=== PATIENT | male | born 1960 | race Two or more races ===

== ENCOUNTER 2019-10-04 09:52 | Inpatient (IN) | payer OTHER ==
[~2019-10-04] VITALS: Ht 165.1 cm; Wt 68.0 kg
--- NOTE | 2019-10-04 10:10 | NUR ---
PT BIBRA FROM HOME C/O L SIDE CHEST PAIN AND BODY ACHES FOR 3 DAYS, PT IS AAOX4, NOT IN RESPIRATORY DISTRESS, HOOKED TO COMPETITIVE INTELLIGENCE MANAGER, KEPT RESTED AND COMFORTABLE, WILL CONTINUE TO MONITOR.
--- NOTE | 2019-10-04 10:30 | NUR ---
SEEN AND EXAMINED BY .
--- NOTE | 2019-10-04 10:40 | NUR ---
IV LINE ESTABLISHED BLOOD DRAWN AND SENT TO LAB.
--- NOTE | 2019-10-04 10:45 | NUR ---
COVID SWAB OBTAINED AND SENT TO LAB.
[2019-10-04 10:52] LABS: BASOPHILS # (AUTO) 0.1 /CMM (0.0-0.2); BASOPHILS % (AUTO) 2.8 % (0.0-2.0); EOSINOPHILS % (AUTO) 0.3 % (0.0-6.0); HEMATOCRIT 44 % (39-51); HEMOGLOBIN 15.4 g/dL (13.5-17.5); LYMPHOCYTES # (AUTO) 1.3 /CMM (0.8-4.8); MEAN CORPUSCULAR HGB CONC 35 g/dl (31.0-36.0); MEAN CORPUSCULAR VOLUME 90 fL (80-96); MONOCYTES # (AUTO) 0.4 /CMM (0.1-1.30); MONOCYTES % (AUTO) 9.2 % (2.0-12.0); NEUTROPHILS # (AUTO) 2.4 /CMM (1.8-8.9); NEUTROPHILS % (AUTO) 57.7 % (43.0-81.0); PLATELET COUNT (AUTO) 176 /CMM (150-450); RED BLOOD CELL COUNT(AUTO) 4.93 MIL/uL (4.5-6.0); WHITE BLOOD COUNT (AUTO) 4.2 K/uL (4.3-11.0)
--- NOTE | 2019-10-04 10:53 | NUR ---
URINAL GIVEN BUT UNABLE TO PROVIDE URINE SPECIMEN THIS TIME.
[2019-10-04 10:59] LABS: CALCIUM, SERUM 8.6 mg/dL (8.5-10.1); CARBON DIOXIDE 27 mmol/L (21-32); CHLORIDE 98 mmol/L (98-107); CREATININE 1.1 mg/dL (0.6-1.3); GLUCOSE 214 mg/dL (74-106); POTASSIUM 3.7 mmol/L (3.5-5.1); SODIUM SERUM 132 mmol/L (136-145); UREA NITROGEN, BLOOD 14 mg/dL (7-18)
--- NOTE | 2019-10-04 11:05 | NUR ---
RT AT BEDSIDE FOR ABG.
[2019-10-04 11:09] LABS: D-DIMER 0.52 mg/L(FEU (0.17-0.50)
--- NOTE | 2019-10-04 11:09 | NUR ---
REFRIGERATION HOUSEMAN AT BEDSIDE FOR XRAY.
[2019-10-04 11:16] LABS: ALANINE AMINOTRANSFERASE 27 U/L (12-78); ALBUMIN 3.1 g/dL (3.4-5.0); ALKALINE PHOSPHATASE 66 U/L (46-116); ASPARTATE AMINOTRANSFERASE 27 U/L (15-37); B-TYPE NATRIURETIC PEPTIDE 70 PG/ML (0-125); BILIRUBIN,TOTAL 0.4 mg/dL (0.2-1.0); TOTAL PROTEIN, SERUM 7.2 g/dL (6.4-8.2)
[2019-10-04 11:20] LABS: ABG BASE EXCESS -2.8 mmol/L; ABG OXYGEN SATURATION 94.6 % (92.0-98.5); ABG PCO2 24.6 mmHg (35.0-45.0); ABG PH 7.494 (7.350-7.450); ABG PO2 74.2 mmHg (75.0-100.0); AaDO2 46.1 mmHg; COHb 1.2 % (0.5-1.5); MetHb 0.4 % (0.0-1.5); O2Hb 93.1 % (94.0-97.0); SITE, ABG Left Radial
[2019-10-04 11:24] LABS: FERRITIN 859 ng/mL (8-388)
--- NOTE | 2019-10-04 11:41 | NUR ---
URINE SPECIMEN COLLECTED AND SENT TO LAB.
[2019-10-04 11:44] LABS: C-REACTIVE PROTEIN 15.9 mg/dL (0.0-0.9)
[2019-10-04 11:45] LABS: APPEARANCE,URINE Clear (CLEAR); BILIRUBIN,URINE Negative (NEGATIVE); BLOOD, URINE Negative Ery/uL (NEGATIVE); COLOR,URINE Yellow (YELLOW); KETONES,URINE 40 (NEGATIVE); LEUKOCYTE ESTERASE ,URINE Negative (NEGATIVE); NITRITE, URINE Negative (NEGATIVE); PROTEIN,URINE 100 mg/dl (NEGATIVE); UGLUCOSE >=1000 mg/dL (NEGATIVE); UROBILINOGEN,URINE 0.2 EU/dL (0.2)
--- NOTE | 2019-10-04 12:46 | NUR ---
RAMYA BABCOCK DNP AT BEDSIDE FOR EVAL.
[2019-10-04] MEDS ORDERED: ALBUTEROL SULFATE 8 GM HFA.AER.AD IH PRN (13:00)
[2019-10-04] MEDS ORDERED: CEFTRIAXONE 1 G in IV D5W 50 ML IV SCH (13:00)
[2019-10-04] MEDS ORDERED: AZITHROMYCIN 500 MG in IV D5W 250 ML IV ONE (13:00)
[2019-10-04] MEDS ORDERED: ONDANSETRON HCL/PF 4 MG/2 ML VIAL IVP PRN (13:00)
[2019-10-04] MEDS ORDERED: CEFTRIAXONE 1GM BAG (ER ONLY) 50 ML IV ONE (13:07)
[2019-10-04] MEDS ORDERED: CEFTRIAXONE 1 G in IV D5W 50 ML IV ONE (13:13)
--- NOTE | 2019-10-04 13:17 | NUR ---
REPORT GIVEN TO YAIMA COOK FOR YUSRA.
[2019-10-04] MEDS ORDERED: HYDROXYCHLOROQUINE 200 MG TABLET PO SCH (14:00)
--- NOTE | 2019-10-04 14:00 | NUR ---
STOCK PREPARATION OPERATOR NOTES RECEIVED PATIENT FROM ER. PATIENT IS A/OX4 AMBULATORY WITH CLEAR CONVERSATION. PATIENT ON ISOLATION FOR COVID RULE OUT. VITALS WITHIN NORMAL LIMITS AND NO FEVER NOTED AT THIS TIME. PATIENT HAS LEFT AC IV ACCESS (PATENT). BELONGINGS SIGNED AND PUT IN THE CHART. NO SKIN ISSUES NOTED AT THIS TIME. NO PICTURES WERE TAKEN. WILL CONTINUE TO MONITOR THE PATIENT.
[2019-10-04 16:00] VITALS: BP 141/92
[2019-10-04] MEDS ORDERED: MELO-107 PO (16:22)
[2019-10-04] MEDS: ACETAMINOPHEN 325 MG TABLET PO PRN (18:44)
--- NOTE | 2019-10-04 19:30 | NUR ---
TREE DEADENER NOTES PATIENT IS SITTING IN BED AND A/OX4. NO SOB OR DISCOMFORT NOTED AT THIS TIME. ALL NEED ATTENDED. REPORT GIVEN TO HOURLY MANAGER NURSE FOR YUSRA.
[2019-10-04 20:00] VITALS: BP 124/77
--- NOTE | 2019-10-04 20:00 | NUR ---
RN OPENING NOTE PT RECEIVED IN BED WATCHING TV. PT IS A/A/O X3. THERE IS NO S/S OF DISTRESS.PT HAS UNLABORED BREATHING. PT IS ON RA SATING 94%. PT HAS LAC IV 18 G S/L , PATENT AND DRESSING DRY AND INTACT. PT IS ON TELE MONITOR SR AND HR IN 70s. SAFETY MEASURES IN PLACE BED AT LOWEST POSITION, LOCKED, SIDE RAILS UP X2, CALL LIGHT IN REACH. WILL CONTINUE TO MONITOR.
[2019-10-05] VITALS: BP 138/89
[2019-10-05] MEDS: ACETAMINOPHEN 325 MG TABLET PO PRN ×3 (00:22→20:30)
[2019-10-05 04:00] VITALS: BP 139/86
[2019-10-05 06:23] LABS: BASOPHILS % (AUTO) 0.2 % (0.0-2.0); EOSINOPHILS % (AUTO) 0.1 % (0.0-6.0); HEMATOCRIT 42 % (39-51); HEMOGLOBIN 15.1 g/dL (13.5-17.5); LYMPHOCYTES # (AUTO) 1.6 /CMM (0.8-4.8); LYMPHOCYTES % (AUTO) 30.1 % (20.0-44.0); MEAN CORPUSCULAR HGB CONC 36 g/dl (31.0-36.0); MEAN CORPUSCULAR VOLUME 88 fL (80-96); MONOCYTES # (AUTO) 0.6 /CMM (0.1-1.30); NEUTROPHILS # (AUTO) 3.1 /CMM (1.8-8.9); NEUTROPHILS % (AUTO) 58.6 % (43.0-81.0); PLATELET COUNT (AUTO) 205 /CMM (150-450); RED BLOOD CELL COUNT(AUTO) 4.79 MIL/uL (4.5-6.0); WHITE BLOOD COUNT (AUTO) 5.2 K/uL (4.3-11.0)
[2019-10-05 06:28] LABS: BILIRUBIN,TOTAL 0.5 mg/dL (0.2-1.0); CALCIUM, SERUM 8.8 mg/dL (8.5-10.1); CREATININE 0.9 mg/dL (0.6-1.3); POTASSIUM 3.6 mmol/L (3.5-5.1); TOTAL PROTEIN, SERUM 7.3 g/dL (6.4-8.2)
--- NOTE | 2019-10-05 06:30 | NUR ---
RN CLOSING NOTE PT IS SLEEPING IN THE BED. NO ACUTE CHANGES DURING MY SHIFT. VSS. SAFETY MEASURES IN PLACE BED AT LOWEST POSITION, AND LOCKED ,CALL LIGHT WITHIN REACH, SIDE RAILS UPX2, WILL ENDORSE TO INCOMING NURSE FOR CONTINUITY OF CARE.
[2019-10-05 08:00] VITALS: BP 141/88
--- NOTE | 2019-10-05 08:00 | NUR ---
NIHARIKA OPENING RN NOTES PT IS RESTING IN THE BED. SR HR 62. SAFETY MEASURES IN PLACE BED AT LOWEST POSITION, AND LOCKED ,CALL LIGHT WITHIN REACH, SIDE RAILS UPX2, WILL CONTINUITY TO MONITOR.
[2019-10-05] MEDS ORDERED: HYDROXYCHLOROQUINE 200 MG TABLET PO SCH (09:00)
[2019-10-05] MEDS: CEFTRIAXONE 1 G in IV D5W 50 ML IV SCH (09:52)
[2019-10-05] MEDS ORDERED: LORAZEPAM 0.5 MG TABLET PO PRN (10:00)
[2019-10-05 11:37] LABS: PHOSPHORUS 3.7 mg/dL (2.5-4.9)
[2019-10-05 12:00] VITALS: BP_SYST 141; BP_SYST 147; BP_DIAS 88; BP_DIAS 94
[2019-10-05 12:07] LABS: CHOLESTEROL 149 mg/dL (<200); HDL CHOLESTEROL 36 mg/dL (40-60); LDL 101 mg/dL (0-99); THYROID STIMULATING HORMONE 0.645 uIU/mL (0.358-3.74); TRIGLYCERIDES 118 mg/dL (30-150)
[2019-10-05] MEDS: ENOXAPARIN SODIUM 40 MG/0.4 ML DISP.SYRIN SQ SCH (12:20)
[2019-10-05] MEDS: DOXYCYCLINE HYCLATE (100 MG) 100 MG TABLET PO SCH ×2 (12:30→20:30)
[2019-10-05] MEDS ORDERED: AZITHROMYCIN 500 MG in IV D5W 250 ML IV SCH (13:00)
[2019-10-05 16:00] VITALS: BP 134/73
--- NOTE | 2019-10-05 18:27 | NUR ---
RN CLOSING NOTE PT IS RESTING IN THE BED. PT IS COVID POSITIVE AND DROPLET PRECAUTIONS ARE TAKEN. PT IS ON ROOM AIR. SAFETY MEASURES IN PLACE BED AT LOWEST POSITION, AND LOCKED ,CALL LIGHT WITHIN REACH, SIDE RAILS UPX2, WILL ENDORSE TO NIGHTSHIFT NURSE FOR CONTINUITY OF CARE.
--- NOTE | 2019-10-05 19:55 | NUR ---
ROOFING MACHINE TENDER OPENING NOTE RECEIVED PT BED AND APPEARS RESTING COMFORTABLY, ALERT AND ORIENTED X4. PATIENT IN NO S/SX OF ACUTE DISTRESS AT THIS TIME. NO SOB NOTED. PATIENT IS ON ROOM AIR, BREATHING IS EVEN AND UNLABORED. PATIENT ON TELE MONITORING READING SR AT 70'S. NOTED IV SITE AT LAC #18; PATENT AND FLUSHING WELL,NO S/S OF INFECTION OR INFILTRATION. PATIENT IS AMBULATORY, NEEDS MINIMAL ASSISTANCE WITH TOILETING. SAFETY MEASURES HAVE BEEN PROVIDED AND IMPLEMENTED. PATIENT BED ALARM IS ON. HEAD OF BED ELEVATED. BED IS LOCKED, IN LOWEST POSITION AND SIDE RAILS UP. CALL LIGHT WITHIN REACH OF THE PATIENT. WILL CONTINUE TO MONITOR AND REASSESS FOR ANY CHANGES IN CONDITION.
[2019-10-05 20:00] VITALS: BP 149/87
--- NOTE | 2019-10-05 20:30 | NUR ---
RN NOTE PATIENT COMPLAINING OF 3/10 PAIN, TEMP 100.4 F; TYLENOL 650 GIVEN ORDERED, COOLING MEASURES PROVIDED
[2019-10-06] VITALS: BP 114/75
[2019-10-06 04:00] VITALS: BP 144/93
--- NOTE | 2019-10-06 05:00 | NUR ---
RN NOTE PATIENT COMPLAINING OF SEVERE LEFT SIDED CHEST PAIN AT LEVEL 10/10. SAYS TYLENOL 650 MG NOT EFFECTIVE. REPORTED TO DR DEVI AND ORDERED MORPHINE 2MG IV PUSH Q4H PRN FOR SEVERE PAIN. MORPHINE 2MG GIVEN ORDERED
[2019-10-06] MEDS: MORPHINE SULFATE INJ 2 MG/ML DISP.SYRIN IV PRN ×2 (06:06→20:23)
[2019-10-06 06:25] LABS: BASOPHILS % (AUTO) 0.2 % (0.0-2.0); EOSINOPHILS % (AUTO) 0.1 % (0.0-6.0); HEMATOCRIT 41 % (39-51); HEMOGLOBIN 14.9 g/dL (13.5-17.5); LYMPHOCYTES # (AUTO) 1.8 /CMM (0.8-4.8); LYMPHOCYTES % (AUTO) 31.4 % (20.0-44.0); MEAN CORPUSCULAR HGB CONC 36 g/dl (31.0-36.0); MEAN CORPUSCULAR VOLUME 89 fL (80-96); MONOCYTES # (AUTO) 0.6 /CMM (0.1-1.30); MONOCYTES % (AUTO) 10.4 % (2.0-12.0); NEUTROPHILS # (AUTO) 3.3 /CMM (1.8-8.9); NEUTROPHILS % (AUTO) 57.9 % (43.0-81.0); PLATELET COUNT (AUTO) 257 /CMM (150-450); RED BLOOD CELL COUNT(AUTO) 4.68 MIL/uL (4.5-6.0); WHITE BLOOD COUNT (AUTO) 5.8 K/uL (4.3-11.0)
[2019-10-06 06:34] LABS: ALANINE AMINOTRANSFERASE 33 U/L (12-78); ALKALINE PHOSPHATASE 62 U/L (46-116); ASPARTATE AMINOTRANSFERASE 31 U/L (15-37); BILIRUBIN,TOTAL 0.5 mg/dL (0.2-1.0); CALCIUM, SERUM 9.1 mg/dL (8.5-10.1); CARBON DIOXIDE 27 mmol/L (21-32); CHLORIDE 93 mmol/L (98-107); CREATININE 1.1 mg/dL (0.6-1.3); GLUCOSE 208 mg/dL (74-106); MAGNESIUM 1.8 mg/dL (1.8-2.4); POTASSIUM 3.6 mmol/L (3.5-5.1); SODIUM SERUM 129 mmol/L (136-145); TOTAL PROTEIN, SERUM 7.5 g/dL (6.4-8.2); UREA NITROGEN, BLOOD 12 mg/dL (7-18)
--- NOTE | 2019-10-06 07:11 | NUR ---
RN CLOSING NOTE PATIENT REMAINS IN ROOM RESTING COMFORTABLY.NO SIGNS OF RESPIRATORY, ON RA;TOLERATTING WELL SATURATING @ 93-95% ON ROOM AIR.PATIENT IS CLEAN , DRY AND COMFORTABLE THROUGHOUT THE SHIFT. ALL DUE MEDS GIVEN ORDERED ; PATIENT TOLERATED WELL. SAFETY MEASURES IMPLEMENTED, BED IN LOWEST POSITION, LOCKED, SIDE RAILS UP, CALL LIGHT WITHIN REACH. ENDORSED TO ONCOMING SHIFT RN FOR CONTINUITY OF CARE.
--- NOTE | 2019-10-06 07:34 | NUR ---
rn notes patient received on room air, no sob noted, shows no s/s of pain at this time. bed at the lowest setting, call light within reach, side rails up x2.
[2019-10-06 08:00] VITALS: BP_SYST 131; BP_SYST 144; BP_DIAS 89; BP_DIAS 93
[2019-10-06] MEDS: ACETAMINOPHEN 325 MG TABLET PO PRN (08:08)
[2019-10-06] MEDS: DOXYCYCLINE HYCLATE (100 MG) 100 MG TABLET PO SCH ×2 (08:08→20:08)
[2019-10-06] MEDS: ENOXAPARIN SODIUM 40 MG/0.4 ML DISP.SYRIN SQ SCH (08:09)
[2019-10-06] MEDS: CEFTRIAXONE 1 G in IV D5W 50 ML IV SCH (09:11)
[2019-10-06] MEDS ORDERED: methylPREDNISolone SOD SUCC 40 MG/ML VIAL IV ONE (10:30)
[2019-10-06] MEDS ORDERED: INVESTIGATIONAL MED MISC 1 EA in IV NS 0.9% 250 ML IV ONE (11:00)
[2019-10-06 12:00] VITALS: BP_SYST 123; BP_SYST 136; BP_DIAS 84
[2019-10-06] MEDS ORDERED: ACETAMINOPHEN 325 MG TABLET PO ONE (13:30)
[2019-10-06] MEDS ORDERED: diphenhydrAMINE HCL 50 MG/ML VIAL IV ONE (13:30)
[2019-10-06] MEDS ORDERED: TOCILIZUMAB 400 MG in IV NS 0.9% 80 ML IV ONE (14:00)
[2019-10-06 16:00] VITALS: BP 139/91
--- NOTE | 2019-10-06 17:57 | NUR ---
rn notes patient remains on room air, no sob noted, patient a/o x4 and denies pain at this time. ambulatory and is able to go to the restroom with good balance. L AC 18 and R FA 20 present. Remdesivir to start today and will go on for a couple of days. bed at the lowest setting, call light within reach, side rails up x2.
[2019-10-06 20:00] VITALS: BP 139/84
[2019-10-07] VITALS: BP_SYST 139; BP_SYST 140; BP_DIAS 82; BP_DIAS 84
--- NOTE | 2019-10-07 00:17 | NUR ---
TELE-1/JACKER REPORT TO COSME ERWIN FOR CONT OF CARE.
--- NOTE | 2019-10-07 00:18 | NUR ---
RN NOTES RECEIVED VERBAL REPORT/ENDORSEMENT FROM WAQAS COKER FOR CONTINUITY OF CARE. WILL CONTINUE TO MONITOR AND REASSESS FOR ANY CHANGES AND NEEDS OF PATIENT.
--- NOTE | 2019-10-07 03:25 | NUR ---
RN NOTES SENT MESSAGE TO RODERICK FAJARDO, REGARDING CURRENT STATUS OF PT ; COUGHING NON STOP. ASKED FOR ANY ORDERS TO BE GIVEN. AWAITING RESPONSE. Addendum: 10/07/19 at 0406 by SANDRITA FIGUEROA RN [id number]- MESSAGE RECEIVED; ORDER ROBITUSSIN AC SYRUP 5L Q4H PRN FOR COUGH. WILL CARRY OUT ORDERED.
[2019-10-07] MEDS: ACETAMINOPHEN 325 MG TABLET PO PRN (03:57)
[2019-10-07] MEDS: GUAIFENESIN/CODEINE 10 ML UDC PO PRN ×3 (03:57→17:05)
[2019-10-07 04:00] VITALS: BP 141/87
--- NOTE | 2019-10-07 06:39 | NUR ---
RN CLOSING NOTE PATIENT REMAINS IN ROOM RESTING COMFORTABLY.NO SIGNS OF RESPIRATORY, ON RA;TOLERATING WELL SATURATING > 95% 02 SAT. PATIENT IS CLEAN , DRY AND COMFORTABLE THROUGHOUT THE SHIFT. ALL DUE MEDS GIVEN ORDERED ; PATIENT TOLERATED WELL. SAFETY MEASURES IMPLEMENTED, BED IN LOWEST POSITION, LOCKED, SIDE RAILS UP, CALL LIGHT WITHIN REACH. ENDORSED TO ONCOMING SHIFT RN FOR CONTINUITY OF CARE.
[2019-10-07 06:49] LABS: BASOPHILS % (AUTO) 0.2 % (0.0-2.0); HEMATOCRIT 42 % (39-51); HEMOGLOBIN 14.7 g/dL (13.5-17.5); LYMPHOCYTES # (AUTO) 1.1 /CMM (0.8-4.8); LYMPHOCYTES % (AUTO) 34.3 % (20.0-44.0); MEAN CORPUSCULAR HGB CONC 35 g/dl (31.0-36.0); MEAN CORPUSCULAR VOLUME 89 fL (80-96); MONOCYTES # (AUTO) 0.5 /CMM (0.1-1.30); MONOCYTES % (AUTO) 16.4 % (2.0-12.0); NEUTROPHILS # (AUTO) 1.5 /CMM (1.8-8.9); NEUTROPHILS % (AUTO) 49.1 % (43.0-81.0); PLATELET COUNT (AUTO) 321 /CMM (150-450); RED BLOOD CELL COUNT(AUTO) 4.74 MIL/uL (4.5-6.0); WHITE BLOOD COUNT (AUTO) 3.1 K/uL (4.3-11.0)
[2019-10-07 07:13] LABS: ALBUMIN 2.8 g/dL (3.4-5.0); BILIRUBIN,DIRECT 0.1 mg/dL (0.0-0.2); BILIRUBIN,TOTAL 0.5 mg/dL (0.2-1.0); CALCIUM, SERUM 9.1 mg/dL (8.5-10.1); CREATININE 1.2 mg/dL (0.6-1.3); MAGNESIUM 2.1 mg/dL (1.8-2.4); PHOSPHORUS 4.1 mg/dL (2.5-4.9); POTASSIUM 4.1 mmol/L (3.5-5.1); TOTAL PROTEIN, SERUM 7.6 g/dL (6.4-8.2)
[2019-10-07 08:00] VITALS: BP 146/90
--- NOTE | 2019-10-07 08:00 | NUR ---
RN OPENING NOTE RECEIVED PATIENT RESTING COMFORTABLY.NO SIGNS OF RESPIRATORY, ON RA;ALERT AND ORIENTED X4 .TOLERATING WELL SATURATING > 94% 02 SAT. PATIENT IS CLEAN . SAFETY MEASURES IMPLEMENTED, BED IN LOWEST POSITION, LOCKED, SIDE RAILS UP, CALL LIGHT WITHIN REACH. WILL CONTINUE TO MONITOR
[2019-10-07] MEDS: ENOXAPARIN SODIUM 40 MG/0.4 ML DISP.SYRIN SQ SCH (08:31)
[2019-10-07] MEDS: DOXYCYCLINE HYCLATE (100 MG) 100 MG TABLET PO SCH ×2 (08:53→20:21)
[2019-10-07] MEDS: CEFTRIAXONE 1 G in IV D5W 50 ML IV SCH (09:12)
--- NOTE | 2019-10-07 11:16 | NUR ---
NIHARIKA RN NOTES CALLED PHARMACY TO BRING INVESTIGATION DRUG REMDESIVIR.
[2019-10-07] MEDS: INVESTIGATIONAL MED MISC 1 EA in IV NS 0.9% 250 ML IV SCH (11:41)
[2019-10-07 12:00] VITALS: BP 140/95
[2019-10-07] MEDS ORDERED: DEXTROSE 50%-WATER 50 ML DISP.SYRIN IV PRN (15:30)
--- NOTE | 2019-10-07 15:36 | NUR ---
followup quantiferon test from lab spoke with poly has turn around 2 to 5 days ,will continue to followup.
[2019-10-07 16:00] VITALS: BP 149/85
[2019-10-07 16:10] LABS: *SPE A/G RATIO 0.8 (0.7-1.7); *SPE ALBUMIN 2.7 g/dL (2.9-4.4); *SPE ALPHA-1-GLOBULIN 0.3 g/dL (0.0-0.4); *SPE ALPHA-2-GLOBULIN 0.9 g/dL (0.4-1.0); *SPE BETA GLOBULIN 1.2 g/dL (0.7-1.3); *SPE GLOBULIN, TOTAL 3.4 g/dL (2.2-3.9); *SPE M-SPIKE Not Observed g/dL (Not Observed)
[2019-10-07] MEDS: METFORMIN 500 MG TABLET PO SCH (17:05)
[2019-10-07] MEDS: BLOOD SUGAR DIAGNOSTIC 1 EACH STRIP IN SCH ×2 (17:18→21:29)
[2019-10-07] MEDS: INSULIN REGULAR, HUMAN 100 UNIT/ML 3 ML VIAL SQ PRN ×2 (18:00→21:36)
--- NOTE | 2019-10-07 18:39 | NUR ---
OU RN CLOSING NOTE PATIENT IN ROOM RESTING COMFORTABLY.NO SIGNS OF RESPIRATORY DISTRESS, ON RA;TOLERATING WELL SATURATING > 95% 02 SAT. PATIENT IS CLEAN , DRY AND COMFORTABLE THROUGHOUT THE SHIFT. ALL DUE MEDS GIVEN ORDERED ;NEW INVESTIGATIONAL DRUG WAS GIVEN TOLERATED WELL. PATIENT TOLERATED WELL. SAFETY MEASURES IMPLEMENTED, BED IN LOWEST POSITION, LOCKED, SIDE RAILS UP, CALL LIGHT WITHIN REACH. WILL ENDORSED TO NIGHTSHIFT RN FOR CONTINUITY OF CARE.
--- NOTE | 2019-10-07 19:15 | NUR ---
TWO WAY RADIO TECHNICIAN OPENING NOTES: RECEIVED PT A/OX4 IN BED RESTING COMFORTABLY. PATIENT IN NO S/SX OF ACUTE DISTRESS AT THIS TIME. NO SOB NOTED. PATIENT'S BREATHING IS EVEN AND UNLABORED. PATIENT IS ON RA TOLERATING WELL. PATIENT IS AMBULATORY. PATIENT ON TELE MONITORING READING SINUS RHYTHM HR 60S. NOTED IV SITE ON R FA #20; PATENT IN INTACT,NO S/S OF INFECTION OR INFILTRATION. SAFETY MEASURES HAVE BEEN PROVIDED AND IMPLEMENTED. PATIENT BED ALARM IS ON. HEAD OF BED ELEVATED. BED IS LOCKED, IN LOWEST POSITION AND SIDE RAILS UP. CALL LIGHT WITHIN REACH OF THE PATIENT. ISOLATION PRECAUTIONS IN PLACE. WILL CONTINUE TO MONITOR AND REASSESS FOR ANY CHANGES.
[2019-10-07 20:00] VITALS: BP 133/97
[2019-10-08] VITALS: BP 140/87
[2019-10-08 04:00] VITALS: BP 140/83
--- NOTE | 2019-10-08 06:26 | NUR ---
RN CLOSING NOTE: PATIENT REMAINS IN ROOM RESTING COMFORTABLY.NO SIGNS OF RESPIRATORY, ON RA;TOLERATTING WELL SATURATING @ >95% SP02.PATIENT IS CLEAN , DRY AND COMFORTABLE THROUGHOUT THE SHIFT. ALL DUE MEDS GIVEN ORDERED ; PATIENT TOLERATED WELL. SAFETY MEASURES IMPLEMENTED, BED IN LOWEST POSITION, LOCKED, SIDE RAILS UP, CALL LIGHT WITHIN REACH. ENDORSED TO INCOMING SHIFT RN FOR CONTINUITY OF CARE.
--- NOTE | 2019-10-08 07:30 | NUR ---
rn notes received patient, awake, alert and oriented x4, not on any form of distress. tolerating room air. breathing unlabored. with complaints of pain on the left side flank but claims to be tolerable at this time. sinus rhythm on the monitor with hr on the 60s. iv site on the right forearm, saline lock. patient encourage to call for help/assistance when needed. safety measures observed and maintained. call light within reach. isolation precaution initiated. will continue to monitor patient accordingly
[2019-10-08 08:00] VITALS: BP 130/72
[2019-10-08] MEDS: BLOOD SUGAR DIAGNOSTIC 1 EACH STRIP IN SCH ×4 (08:23→21:24)
[2019-10-08] MEDS: METFORMIN 500 MG TABLET PO SCH ×2 (08:23→18:15)
[2019-10-08] MEDS: DOXYCYCLINE HYCLATE (100 MG) 100 MG TABLET PO SCH ×2 (08:23→21:05)
[2019-10-08] MEDS: ENOXAPARIN SODIUM 40 MG/0.4 ML DISP.SYRIN SQ SCH (08:25)
[2019-10-08] MEDS: CEFTRIAXONE 1 G in IV D5W 50 ML IV SCH (10:49)
[2019-10-08 11:23] LABS: BASOPHILS % (AUTO) 0.4 % (0.0-2.0); HEMATOCRIT 44 % (39-51); HEMOGLOBIN 15.3 g/dL (13.5-17.5); LYMPHOCYTES # (AUTO) 1.2 /CMM (0.8-4.8); LYMPHOCYTES % (AUTO) 31.4 % (20.0-44.0); MEAN CORPUSCULAR HGB CONC 35 g/dl (31.0-36.0); MEAN CORPUSCULAR VOLUME 90 fL (80-96); MONOCYTES # (AUTO) 0.5 /CMM (0.1-1.30); MONOCYTES % (AUTO) 12.2 % (2.0-12.0); NEUTROPHILS # (AUTO) 2.1 /CMM (1.8-8.9); PLATELET COUNT (AUTO) 364 /CMM (150-450); RED BLOOD CELL COUNT(AUTO) 4.89 MIL/uL (4.5-6.0); WHITE BLOOD COUNT (AUTO) 3.8 K/uL (4.3-11.0)
[2019-10-08 11:28] LABS: ALBUMIN 2.8 g/dL (3.4-5.0); BILIRUBIN,DIRECT 0.1 mg/dL (0.0-0.2); BILIRUBIN,TOTAL 0.4 mg/dL (0.2-1.0); CALCIUM, SERUM 8.7 mg/dL (8.5-10.1); POTASSIUM 3.7 mmol/L (3.5-5.1)
[2019-10-08 12:00] VITALS: BP_SYST 137; BP_DIAS 71; BP_DIAS 91
[2019-10-08] MEDS: INVESTIGATIONAL MED MISC 1 EA in IV NS 0.9% 250 ML IV SCH (12:21)
[2019-10-08] MEDS: INSULIN REGULAR, HUMAN 100 UNIT/ML 3 ML VIAL SQ PRN ×3 (12:24→21:27)
[2019-10-08 16:00] VITALS: BP 141/84
--- NOTE | 2019-10-08 19:12 | NUR ---
rn notes endorsed for continuity of care. not on any form of distress. patient tolerating room air. no complaints of any pain at this time. all nursing needs attended and met. all safety measures in place at all time. isolation precaution implemented at all times. call light within reach
--- NOTE | 2019-10-08 19:55 | NUR ---
VEGETABLE PICKER OPENING NOTE RECEIVED PT IN BED RESTING COMFORTABLY. A/OX4, NO S/SX OF ACUTE DISTRESS AT THIS TIME. NO SOB NOTED. PATIENT'S BREATHING IS EVEN AND UNLABORED, SATURATING >95% ON ROOM AIR; PATIENT ON TELE MONITOR READING SR, HR IS @60-70'S. PATIENT IS AMBULATORY. NOTED IV SITE RFA #20; PATENT AND FLUSHING WELL,NO S/S OF INFECTION OR INFILTRATION. SAFETY MEASURES IMPLEMENTED PER PROTOCOL. HEAD OF BED ELEVATED. BED IS LOCKED, IN LOWEST POSITION AND SIDE RAILS UP X2. CALL LIGHT WITHIN REACH OF THE PATIENT. WILL CONTINUE TO MONITOR AND REASSESS FOR ANY CHANGES.
[2019-10-08 20:00] VITALS: BP 130/89
[2019-10-09] VITALS: BP 138/97
[2019-10-09 04:00] VITALS: BP 135/85
[2019-10-09 07:06] LABS: MAGNESIUM 1.9 mg/dL (1.8-2.4); PHOSPHORUS 4.1 mg/dL (2.5-4.9)
--- NOTE | 2019-10-09 07:06 | NUR ---
RN CLOSING NOTE PATIENT REMAINS IN ROOM. NO SIGNS OF RESPIRATORY. SAFETY MEASURES IMPLEMENTED, BED IN LOWEST POSITION, LOCKED, SIDE RAILS UPX2, CALL LIGHT WITHIN REACH. ENDORSED TO ONCOMING SHIFT RN FOR CONTINUITY OF CARE.
[2019-10-09 08:00] VITALS: BP 138/96
[2019-10-09] MEDS: ENOXAPARIN SODIUM 40 MG/0.4 ML DISP.SYRIN SQ SCH (08:09)
[2019-10-09] MEDS: METFORMIN 500 MG TABLET PO SCH ×2 (08:09→17:16)
[2019-10-09] MEDS: DOXYCYCLINE HYCLATE (100 MG) 100 MG TABLET PO SCH ×2 (08:09→21:06)
[2019-10-09] MEDS: BLOOD SUGAR DIAGNOSTIC 1 EACH STRIP IN SCH ×4 (08:30→21:27)
[2019-10-09] MEDS: INSULIN REGULAR, HUMAN 100 UNIT/ML 3 ML VIAL SQ PRN ×5 (08:52→21:30)
[2019-10-09 09:47] LABS: BILIRUBIN,DIRECT 0.1 mg/dL (0.0-0.2); BILIRUBIN,TOTAL 0.3 mg/dL (0.2-1.0); TOTAL PROTEIN, SERUM 7.1 g/dL (6.4-8.2)
[2019-10-09] MEDS: CEFTRIAXONE 1 G in IV D5W 50 ML IV SCH (10:11)
[2019-10-09 11:09] LABS: BASOPHILS % (AUTO) 0.5 % (0.0-2.0); EOSINOPHILS % (AUTO) 2.8 % (0.0-6.0); HEMATOCRIT 45 % (39-51); HEMOGLOBIN 15.9 g/dL (13.5-17.5); LYMPHOCYTES # (AUTO) 1.4 /CMM (0.8-4.8); LYMPHOCYTES % (AUTO) 32.5 % (20.0-44.0); MEAN CORPUSCULAR HGB CONC 35 g/dl (31.0-36.0); MEAN CORPUSCULAR VOLUME 88 fL (80-96); MONOCYTES # (AUTO) 0.5 /CMM (0.1-1.30); NEUTROPHILS # (AUTO) 2.3 /CMM (1.8-8.9); NEUTROPHILS % (AUTO) 52.2 % (43.0-81.0); PLATELET COUNT (AUTO) 400 /CMM (150-450); WHITE BLOOD COUNT (AUTO) 4.4 K/uL (4.3-11.0)
[2019-10-09] MEDS: INVESTIGATIONAL MED MISC 1 EA in IV NS 0.9% 250 ML IV SCH (11:25)
[2019-10-09 11:29] LABS: ALBUMIN 2.8 g/dL (3.4-5.0); BILIRUBIN,DIRECT 0.1 mg/dL (0.0-0.2); BILIRUBIN,TOTAL 0.4 mg/dL (0.2-1.0); POTASSIUM 3.7 mmol/L (3.5-5.1); TOTAL PROTEIN, SERUM 6.8 g/dL (6.4-8.2)
[2019-10-09] MEDS: ACETAMINOPHEN 325 MG TABLET PO PRN (11:52)
[2019-10-09 12:00] VITALS: BP_SYST 122; BP_SYST 137; BP_DIAS 85; BP_DIAS 96
[2019-10-09 15:03] LABS: C-REACTIVE PROTEIN 7.8 mg/dL (0.0-0.9)
[2019-10-09 16:00] VITALS: BP 139/97
--- NOTE | 2019-10-09 18:58 | NUR ---
TELE CLOSING NOTE PT AWAKE IN BED, ALERT AND ORIENTED X 4, ON ROOM AIR, SATURATING WELL, RESPIRATIONS EVEN AND UNLABORED, NO SIGNS OF RESPIRATORY DISTRESS NOTED. IV SITE ON RIGHT FOREARM G20 INTACT, PATENT WITH SALINE LOCK IN PLACE. PROVIDED SAFETY AND COMFORT TO PT THROUGHOUT SHIFT, ALL DUE MEDS GIVEN. BED IN LOW POSITION, LOCKED, CALL LIGHT WITHIN REACH. WILL ENDORSE TO NOC SHIFT NURSE.
--- NOTE | 2019-10-09 19:05 | NUR ---
RN NOTE RECEIVED PATIENT IN BED RESTING, WATCHING TV. A&O X4. ABLE TO MAKE NEEDS KNOWN. BREATHING EVEN AND NON LABORED ON ROOM AIR. IN NO APPARENT DISTRESS NOTED AT THIS TIME. PATIENT IS AMBULATORY. CONTINENT OF BOWEL AND BLADDER. MOTIVATED TO SELF CARE. CALL LIGHT IS WITHIN EASY REACH. WILL CONTINUE TO MONITOR.
[2019-10-09 20:00] VITALS: BP 142/92
[2019-10-10] VITALS (7 sets, daily range): BP systolic 128–143; BP diastolic 76–80
[2019-10-10] MEDS: ACETAMINOPHEN 325 MG TABLET PO PRN (00:21)
[2019-10-10] MEDS: MORPHINE SULFATE INJ 2 MG/ML DISP.SYRIN IV PRN ×2 (04:29→14:07)
--- NOTE | 2019-10-10 06:43 | NUR ---
RN NOTE PATIENT REMAINED STABLE THROUGHOUT THE NIGHT. NO SIGNIFICANT CHANGES NOTED. ALL DUE MEDS GIVEN ORDERED AND TOLERATED WELL. WILL ENDORSE TO AM SHIFT RN FOR CONTINUATION OF CARE.
--- NOTE | 2019-10-10 07:55 | NUR ---
RN NIHARIKA: pt is Covid19 positive, without face mask!/applied new one, pt is A.Ox3, no pain now, no c/o, no SOB/distress, VS WNL, oriented for POC, voids, good appetite, BG200, covered by ISS
[2019-10-10 08:23] LABS: BILIRUBIN,DIRECT 0.1 mg/dL (0.0-0.2); BILIRUBIN,TOTAL 0.5 mg/dL (0.2-1.0); TOTAL PROTEIN, SERUM 7.1 g/dL (6.4-8.2)
[2019-10-10 08:35] LABS: C-REACTIVE PROTEIN 4.3 mg/dL (0.0-0.9)
[2019-10-10] MEDS: ENOXAPARIN SODIUM 40 MG/0.4 ML DISP.SYRIN SQ SCH (08:36)
[2019-10-10] MEDS: INSULIN REGULAR, HUMAN 100 UNIT/ML 3 ML VIAL SQ PRN ×3 (08:36→16:53)
[2019-10-10] MEDS: DOXYCYCLINE HYCLATE (100 MG) 100 MG TABLET PO SCH (08:37)
[2019-10-10] MEDS: BLOOD SUGAR DIAGNOSTIC 1 EACH STRIP IN SCH ×3 (08:37→17:41)
[2019-10-10] MEDS: METFORMIN 500 MG TABLET PO SCH ×2 (08:37→16:12)
[2019-10-10] MEDS: CEFTRIAXONE 1 G in IV D5W 50 ML IV SCH (08:38)
[2019-10-10 08:57] LABS: BASOPHILS % (AUTO) 0.5 % (0.0-2.0); EOSINOPHILS % (AUTO) 4.6 % (0.0-6.0); HEMATOCRIT 46 % (39-51); LYMPHOCYTES # (AUTO) 1.8 /CMM (0.8-4.8); LYMPHOCYTES % (AUTO) 41.1 % (20.0-44.0); MEAN CORPUSCULAR HGB CONC 35 g/dl (31.0-36.0); MEAN CORPUSCULAR VOLUME 89 fL (80-96); MONOCYTES # (AUTO) 0.5 /CMM (0.1-1.30); MONOCYTES % (AUTO) 11.8 % (2.0-12.0); NEUTROPHILS # (AUTO) 1.8 /CMM (1.8-8.9); PLATELET COUNT (AUTO) 456 /CMM (150-450); RED BLOOD CELL COUNT(AUTO) 5.19 MIL/uL (4.5-6.0); WHITE BLOOD COUNT (AUTO) 4.3 K/uL (4.3-11.0)
[2019-10-10 09:04] LABS: CALCIUM, SERUM 8.9 mg/dL (8.5-10.1); CREATININE 0.9 mg/dL (0.6-1.3); POTASSIUM 3.9 mmol/L (3.5-5.1)
[2019-10-10] MEDS: INVESTIGATIONAL MED MISC 1 EA in IV NS 0.9% 250 ML IV SCH (11:13)
--- NOTE | 2019-10-10 11:15 | NUR ---
STATEMENT PROCESSOR: is in pt. room, updated with pt current condition, going to d/c pt after lunch time if ok with
--- NOTE | 2019-10-10 12:00 | NUR ---
MANAGER WIRELESS: spoke with pt.sister/RN re d/c plan, Qs? re meds cover after d/c, BG control/ISS, meds cover, spoke with complex case manager: pt doesnt need HHC, waiting d/s summer/prescriptions, notified charge nurse, spoke with
--- NOTE | 2019-10-10 12:05 | NUR ---
FACETER: is ok with D/c, said: f/u with PMD, repeat LFP after d/c, pt.was instructed re above
--- NOTE | 2019-10-10 12:15 | NUR ---
SITE SURVEYOR: nobody can supervisor picking crew pt for d/c, charge nurse notified/will spek with returned case inspector, spoke with pt sister, Joao again re pt.needs to cover for meds, BG control for next 2 weeks period isolation
[2019-10-10] MEDS ORDERED: HYDR-4384 PO (14:23)
[2019-10-10] MEDS ORDERED: METF-440 PO (14:23)
--- NOTE | 2019-10-10 17:02 | NUR ---
CERTIFIED TRAVEL COUNSELOR: pt got full details d/c instruction and package, prescription, waiting transportation
--- NOTE | 2019-10-10 17:40 | NUR ---
LAP HAND TOOL: spoke with outsole caser/Felisa, charge nurse/Josey lay my/ pt concern for way to be transfer by taxi, got answer: ok with masks using
--- NOTE | 2019-10-10 17:45 | NUR ---
LICENSED MASTER SOCIAL WORKER: gave pt all PPE, masks
--- NOTE | 2019-10-10 17:56 | NUR ---
SANITATION ENGINEER: pt is ready pay 100$ for transportation, notified charge nurse/outsole caser
--- NOTE | 2019-10-10 19:15 | NUR ---
SEED YEAST OPERATOR NOTES EMT CAME TO ECOLOGICAL MODELER [facility] [place], PT IS ALERT ORIENTED X4 NO SIGN AND SYMPTOMS OF RESPIRATORY DISTRESS,SPO2 100% VIA ROOM AIR V/S CHECK WITH LATEST BP 130/80 HR 74 RR 20 TEMP 98.0 PT WALK TO THE [facility] WITH MASK ON PLACE DUE TO PT STILL COVID (+) BELONGING WAS GIVEN COMPLETE, DISCHARGE FORM IS WITH PT, ON HIS ROUTE TO HOME TOGETHER WITH THE [facility]ANZ STAFF
== END 2019-10-10 19:00 | disposition home or self-care (01) | DRG 177 ==
LOC: EDSEX 09:52 → ER 09:58 → TELE1 12:53
PROVIDERS: ADMIT Nurse Practitioner Acute Care; ATTEND Hospitalist
DX: U07.1 COVID-19 (principal); J12.89 Other viral pneumonia; E87.1 Hypo-osmolality and hyponatremia; E44.1 Mild protein-calorie malnutrition; F12.90 Cannabis use, unspecified, uncomplicated; I10 Essential (primary) hypertension; E11.65 Type 2 diabetes mellitus with hyperglycemia; R09.02 Hypoxemia; E88.09 Other disorders of plasma-protein metabolism, not elsewhere classified; Z68.25 Body mass index [BMI] 25.0-25.9, adult
CPT/HCPCS: 36415; 36600; 71045-TC; 80048-TC; 80053-TC; 80061-TC; 80076-TC; 81000-TC; 82728-TC; 82803-TC; 82962-TC; 83605-TC; 83615-TC; 83735-TC; 83880; 84100-TC; 84155; 84165; 84439-TC; 84443-TC; 84484-TC; 85025-TC; 85378-TC; 85610-TC; 85730-TC; 86140-TC; 86480; 87040-TC; 87081-TC; 87086-TC; G0378; J0456; J0696; J1200; J1650; J1815; J2270; J2920; J3262; J7030; J7050; J7060; U0003-CS